=== PATIENT | male | born 1975 | race Caucasian/White ===

== ENCOUNTER 2016-07-07 13:00 | Emergency (ER) | payer OTHER ==
[2016-07-07 14:57] LABS: BASOPHIL 0.1 % (0-2); EOSINOPHIL 0.7 % (0-5); HCT 44.5 % (42.0-52.0); HGB 15.5 g/dl (13.2-18.0); LYMPHOCYTE 12.9 % (15-48); MCHC 34.8 g/dL (32.0-36.0); MCV 86.1 fL (78.0-100.0); MONOCYTE 7.1 % (0-12); MPV 9.7 fL (6.0-9.5); NEUTROPHIL 79.2 % (41-80); PLT 185 K/uL (150-400); RBC 5.17 M/uL (4.70-6.00); RDW 13.2 % (11.5-14.0); WBC 10.7 K/uL (4.0-10.5)
[2016-07-07 15:11] LABS: CREATININE 1.1 mg/dL (0.7-1.2)
== END 2016-07-07 16:25 | disposition other institution (70) ==
LOC: FER 13:00
PROVIDERS: Nurse Practitioner
DX: S61.001A Unspecified open wound of right thumb without damage to nail, initial encounter (principal); L08.9 Local infection of the skin and subcutaneous tissue, unspecified; Z23 Encounter for immunization
CPT/HCPCS: 36415; 73140; 80048; 85025; 87040; 87070; 87205; 90471; 90715

== ENCOUNTER 2021-05-05 09:58 | Emergency (ER) | payer OTHER ==
[~2021-05-05 09:58] MED LIST: NORCO 5-325 TA1 EACH PO
[2021-05-05] MEDS ORDERED: NAPROXEN500 MG PO (13:15)
== END 2021-05-05 14:23 | disposition home or self-care (01) ==
LOC: FER 09:58
DX: M77.8 Other enthesopathies, not elsewhere classified (principal); F17.210 Nicotine dependence, cigarettes, uncomplicated; Z88.2 Allergy status to sulfonamides
CPT/HCPCS: 73080; 73090; J1100